=== PATIENT | female | born 1990 | race Hispanic/Latino ===

== ENCOUNTER 2021-07-25 07:47 | Emergency (ER) | payer OTHER ==
[~2021-07-25] VITALS: Ht 162.6 cm; Wt 73.0 kg
[2021-07-25] MEDS ORDERED: AZITHROMYCIN250 MG PO (08:48)
[2021-07-25] MEDS ORDERED: TESSALON PERLE100 MG PO (08:48)
== END 2021-07-25 09:31 | disposition home or self-care (01) ==
LOC: ER 08:05
DX: O98.512 Other viral diseases complicating pregnancy, second trimester (principal); U07.1 COVID-19; J06.9 Acute upper respiratory infection, unspecified
CPT/HCPCS: 71045; 87400; 99284; U0002